=== PATIENT | male | born 2000 ===

== ENCOUNTER → 2024-11-14 | Outpatient (REF) | payer OTHER ==
[2024-11-14 09:28] LABS: SEMEN APPEARANCE OPAQUE (OPAQUE); SEMEN VISCOSITY LIQUID (LIQUID); SEMEN VOLUME 2.3 ml (2.0-5.0); SEMEN pH 8.5 (7.0-8.0); WBC CONCENTRATION >1 M/ml (<=1 M/ml)
[2024-11-14 09:29] LABS: SPERM CONCENTRATION 50.5 M/ml (>=15.0)
[2024-11-14 09:30] LABS: TOTAL PROGRESSIVE SPERM 72.3 M/Ejac.
== END ==
LOC: M LAB REF 09:01
PROVIDERS: ATTEND Physician Assistant
DX: N46.9 Male infertility, unspecified (principal)

== ENCOUNTER → 2024-11-17 | Outpatient (REF) | payer OTHER ==
[2024-11-17 08:41] LABS: SEMEN APPEARANCE OPAQUE (OPAQUE); SEMEN VISCOSITY LIQUID (LIQUID); SEMEN VOLUME 1.2 ml (2.0-5.0); SEMEN pH 8.5 (7.0-8.0); SPERM CONCENTRATION 49.9 M/ml (>=15.0); TOTAL PROGRESSIVE SPERM 35.3 M/Ejac.; WBC CONCENTRATION >1 M/ml (<=1 M/ml)
== END ==
LOC: M LAB REF 08:37
PROVIDERS: ATTEND Physician Assistant
DX: N46.9 Male infertility, unspecified (principal)

== ENCOUNTER → 2024-11-20 | Outpatient (REF) | payer OTHER ==
[2024-11-20 07:05] LABS: SEMEN APPEARANCE OPAQUE (OPAQUE)
[2024-11-20 07:06] LABS: SEMEN VISCOSITY LIQUID (LIQUID); SEMEN VOLUME 1.3 ml (2.0-5.0); SEMEN pH 8.5 (7.0-8.0); SPERM CONCENTRATION 59.8 M/ml (>=15.0); TOTAL PROGRESSIVE SPERM 51.3 M/Ejac.; WBC CONCENTRATION >1 M/ml (<=1 M/ml)
== END ==
LOC: M LAB REF 06:59
PROVIDERS: ATTEND Physician Assistant
DX: N46.9 Male infertility, unspecified (principal)